=== PATIENT | female | born 1965 | race Two or more races ===

== ENCOUNTER 2023-03-13 12:31 | Emergency (ER) | payer MEDICAID ==
[~2023-03-13] VITALS: Ht 152.4 cm; Wt 91.6 kg
[2023-03-13] MEDS ORDERED: TONO PEN in ED SUPPLY ONICELL 1 EA MC ONE (13:30)
[2023-03-13] MEDS: TIMOLOL 0.5% SOLN OPHTH 5 ML BOTTLE OP ONE ×2 (13:42→16:28)
[2023-03-13] MEDS: PILOCARPINE 1% OPHT DROP 15 ML BOTTLE OP ONE (13:42)
[2023-03-13] MEDS: acetaZOLAMIDE 250 MG TABLET PO ONE (13:43)
[2023-03-13] MEDS: PILOCARPINE 2% OPTH DROP 15 ML BOTTLE OP ONE (13:45)
[2023-03-13] MEDS ORDERED: BRIMONIDINE TARTRATE OPHT SOLN 5 ML BOTTLE ONE (15:25)
[2023-03-13] MEDS: BRIMONIDINE TARTRATE OPHT SOLN 5 ML BOTTLE OP ONE (15:28)
[2023-03-13] MEDS: PILOCARPINE 2% OPTH DROP 15 ML BOTTLE EACHEYE STA (15:52)
[2023-03-13 18:32] LABS: CALCIUM, SERUM 9.1 mg/dL (8.5-10.1); CREATININE 5.9 mg/dL (0.6-1.3); POTASSIUM 5.2 mmol/L (3.5-5.1)
[2023-03-13 22:33] VITALS: BP 155/81; TEMP 98.3; O2SAT 96
== END 2023-03-13 19:45 | disposition short-term general hospital (02) ==
LOC: ER 12:45
DX: H40.212 Acute angle-closure glaucoma, left eye (principal); I11.0 Hypertensive heart disease with heart failure; I50.9 Heart failure, unspecified; F20.9 Schizophrenia, unspecified; F32.A Depression, unspecified
CPT/HCPCS: 36415; 80048-TC